=== PATIENT | female | born 1995 | race Caucasian/White ===

== ENCOUNTER → 2021-03-29 14:41 | Outpatient (CLI) | payer MEDICAID, SELFPAY ==
[2021-03-29 17:44] LABS: hCG Titer Quant., Serum 267 mIU/mL (1-3)
[2021-03-31 22:07] LABS: Chlamydia By Nucleic Acid AMP Negative (Negative)
[2021-04-01 15:54] LABS: Gonococcus By Nucleic Acid AMP Negative (Negative)
[2021-04-02 13:41] LABS: HPV Reflexed? NOT INDICATED
== END ==
PROVIDERS: Visit Provider Obstetrics & Gynecology
DX: Z12.4 Encounter for screening for malignant neoplasm of cervix (principal); Z11.3 Encounter for screening for infections with a predominantly sexual mode of transmission
CPT/HCPCS: 36415; 84702; 87491; 87591; 88175; G0145

== ENCOUNTER → 2021-04-27 16:33 | Outpatient (CLI) | payer MEDICAID, SELFPAY ==
[2021-04-27 18:48] LABS: hCG Titer Quant., Serum < 1 mIU/mL (1-3)
== END ==
PROVIDERS: Visit Provider Obstetrics & Gynecology
DX: O20.0 Threatened abortion (principal); Z3A.00 Weeks of gestation of pregnancy not specified
CPT/HCPCS: 36415; 84702